=== PATIENT | female | born 1975 | race Caucasian/White ===

== ENCOUNTER 2016-11-17 15:02 | Emergency (ER) | payer BC ==
[~2016-11-17] VITALS: Ht 167.6 cm; Wt 70.0 kg
[~2016-11-17 15:02] MED LIST: AMBI12.5 PO; OMEP20TA39 PO; ULTR50TA PO
[2016-11-17 15:04] VITALS: BP 134/91; PULSE 76; RESP 16; TEMP 98.9; O2SAT 99
[2016-11-17] MEDS ORDERED: SODIUM CHLOR 0.9% 1000 ML INJ 1,000 ML IV SCH (15:43)
[2016-11-17] MEDS ORDERED: ONDANSETRON HCL 4 MG/2 ML VIAL IVP ONE (15:45)
--- NOTE | 2016-11-17 15:56 | PD ---
HPI Chief Complaint: Abdominal Pain Time Seen by Provider: 15:34 Travel History International Travel<30 days: No Contact w/Intl Traveler<30days: No Traveled to known affect area: No History of Present Illness HPI 41-year-old female complains of right flank pain. Patient states that the pain started 2 days ago. Patient states the pain is sharp and aching pain localized to right flank area. Patient denies any pain radiation. Patient states that she had nausea vomiting intermittently with the pain. Patient complains of dysuria 2 days ago but not since then. Patient states that her last menstruation period was 2 weeks ago. Patient status post tubal ligation in the past. Patient status post gastric bypass surgery in the past. Patient has history of hypertension, diabetes. On a scale of 1-10 the pain is a 6. PFSH Past Medical History Blood Disorders: No Anxiety: No Depression: No Cancer: No Cardiovascular Problems: No Diabetes: No Endocrine: No Fibromyalgia: Yes Gastrointestinal Disorders: Yes (IBS) GERD: Yes Genitourinary: No Immune Disorder: No Musculoskeletal: No Neurologic: No Psychiatric: Yes Reproductive: No Respiratory: No Immunizations Current: Yes Migraines: Yes Tetanus Vaccination: Unknown Influenza Vaccination: Yes ?: Not LMP: 3 WEEKS AGO/ TUBAL : 3 Para: 3 Tubal Ligation: Yes (2006) Past Surgical History Abdominal Surgery: Yes (LAP. EXPLORATORY) Body Medical Devices: FIBROMYALGIA Gynecologic Surgery: Yes (lap tubal with exploratory 2004) Other Surgery: Yes Social History Alcohol Use: Yes Tobacco Use: Yes (08/20 PPD) Substance Use: No Allergies-Medications (Allergen,Severity, Reaction): Coded Allergies: Darvocet-N 100 (Verified Allergy, Mild, Itching, 11/17/16) Reported Meds & Prescriptions Reported Meds & Active Scripts Active Reported Ultram (Tramadol HCl) 50 Mg Tab 50 Mg PO Q4H PRN Hm Omeprazole (Omeprazole) 20 Mg Tab 20 Mg PO DAILY Ambien Cr (Zolpidem Tartrate) 12.5 Mg Tab 25 Mg PO HS Review of Systems General / Constitutional: No: Fever Eyes: No: Visual changes HENT: No: Headaches Cardiovascular: No: Chest Pain or Discomfort Respiratory: No: Shortness of Breath Gastrointestinal: Positive: Nausea, Vomiting, No: Abdominal Pain Genitourinary: No: Dysuria Musculoskeletal: No: Pain Skin: No Rash Neurologic: No: Weakness Psychiatric: No: Depression Endocrine: No: Polydipsia Hematologic/Lymphatic: No: Easy Bruising Physical Exam Narrative GENERAL: Well-nourished, well-developed patient. SKIN: Focused skin assessment warm/dry. HEAD: Normocephalic. EYES: No scleral icterus. No injection or drainage. NECK: Supple, trachea midline. No JVD or lymphadenopathy. CARDIOVASCULAR: Regular rate and rhythm without murmurs, gallops, or rubs. RESPIRATORY: Breath sounds equal bilaterally. No accessory muscle use. GASTROINTESTINAL: Abdomen soft, non-tender, nondistended. MUSCULOSKELETAL: No cyanosis, or edema. BACK: Patient has moderate tenderness on palpation right flank area, without obvious deformity. No CVA tenderness. Neurologic exam normal. Data Data Last Documented VS Vital Signs Date Time Temp Pulse Resp B/P Pulse Ox O2 Delivery O2 Flow Rate FiO2 11/17/16 15:04 98.9 76 16 134/91 99 Orders Complete Blood Count With Diff (11/17/16 15:43) Comprehensive Metabolic Panel (11/17/16 15:43) Lipase (11/17/16 15:43) Prothrombin Time / Inr (Pt) (11/17/16 15:43) Act Partial Throm Time (Ptt) (11/17/16 15:43) Urinalysis - C+S If Indicated (11/17/16 15:43) Ct Abd/Pel W Iv Contrast(Rout) (11/17/16 15:43) Iv Access Insert/Monitor (11/17/16 15:43) Ecg Monitoring (11/17/16 15:43) Oximetry (11/17/16 15:43) Ondansetron Inj (Zofran Inj) (11/17/16 15:45) Sodium Chlor 0.9% 1000 Ml Inj (Ns 1000 M (11/17/16 15:43) Ed Urine Pregnancytest Poc (11/17/16 15:43) MDM Medical Decision Making Medical Screen Exam Complete: Yes Emergency Medical Condition: Yes Differential Diagnosis Differential diagnosis including musculoskeletal, nephrolithiasis, pyelonephritis, cholecystitis, colitis. Narrative Course 41-year-old female with right flank pain. Prakash Franklin MD Nov 17, 2016 15:55
[2016-11-17 15:57] LABS: AUTOMATED NEUTROPHIL # 3.9 TH/MM3 (1.8-7.7); BASOPHIL # 0.1 TH/MM3 (0-0.2); EOSINOPHIL # 0.2 TH/MM3 (0-0.4); EOSINOPHIL % 2.2 % (0.0-4.0); HEMATOCRIT 34.2 % (35.0-46.0); HEMO FLAGS DIFF FINAL; LYMPH % 29.3 % (9.0-44.0); LYMPHOCYTE # 2.1 TH/MM3 (1.0-4.8); MEAN CORPUSCULAR HEMOGLOBIN 28.5 PG (27.0-34.0); MEAN CORPUSCULAR HGB CONC 33.5 % (32.0-36.0); MONO % 12.4 % (0.0-8.0); NEUT % 55.1 % (16.0-70.0); PLATELET COUNT 188 TH/MM3 (150-450); RED BLOOD COUNT 4.03 MIL/MM3 (4.00-5.30); WHITE BLOOD COUNT 7.2 TH/MM3 (4.0-11.0)
[2016-11-17 16:00] VITALS: O2SAT 98
[2016-11-17] MEDS ORDERED: MORPHINE SULFATE 4 MG/ML INJ IV PUSH ONE (16:00)
[2016-11-17 16:01] VITALS: BP 129/83; PULSE 74; RESP 20; O2SAT 97
[2016-11-17 16:08] LABS: BLOOD, URINE NEG (NEG); CHLORIDE 110 MEQ/L (98-107); GLUCOSE,URINE NEG (NEG); KETONE, URINE NEG (NEG); NITRITE,URINE NEG (NEG); POTASSIUM 3.9 MEQ/L (3.5-5.1); SODIUM (NA) 143 MEQ/L (136-145)
[2016-11-17 16:10] LABS: INTERNATIONAL NORMALIZED RATIO 0.9 RATIO; PROTHROMBIN TIME - PATIENT 10.1 SEC (9.8-11.6)
[2016-11-17 16:12] LABS: ANION GAP 9 MEQ/L (5-15); BICARBONATE 23.6 MEQ/L (21.0-32.0); BLOOD UREA NITROGEN 13 MG/DL (7-18)
[2016-11-17 16:14] LABS: ALT (GPT) 41 U/L (10-53)
[2016-11-17 16:15] LABS: AST (GOT) 35 U/L (15-37); GLOMERULAR FILTRATION RATE 111 ML/MIN (>89)
[2016-11-17 16:16] LABS: TOTAL BILIRUBIN ADULT 0.1 MG/DL (0.2-1.0)
[2016-11-17 16:18] LABS: ALKALINE PHOSPHATASE 50 U/L (45-117)
[2016-11-17 16:23] LABS: URINE COLOR YELLOW (YELLW/STRAW)
[2016-11-17 16:30] LABS: COMMENT (UR) CULT NOT INDICATED; CULTURE IF INDICATED CULT NOT INDICATED; MUCUS URINE RARE /lpf (OCC); SQUAMOUS EPITHELIAL CELL URINE 0-5 /hpf (0-5); WBC, URINE 0-2 /hpf (0-5)
[2016-11-17] MEDS ORDERED: IOHEXOL 350 MG/ML 10 ML VIAL (for RAD DIAG) IV ONE (16:51)
--- NOTE | 2016-11-17 17:13 | RADHPO ---
EXAM DATE/TIME: 11/17/2016 16:24 [facility] COMPARISON: No previous studies available for comparison. INDICATIONS : Right flank pain with nausea and vomiting for two days. IV CONTRAST: 75 cc Omnipaque 350 (iohexol) IV ORAL CONTRAST: No oral contrast ingested. RADIATION DOSE: 7.67 CTDIvol (mGy) MEDICAL HISTORY : Gastroesophageal reflux disease. Irritable bowel syndrome. SURGICAL HISTORY : Tubal ligation. Gastric bypass. ENCOUNTER: Initial ACUITY: 2 days PAIN SCALE: 6/10 LOCATION: Right flank TECHNIQUE: Volumetric scanning of the abdomen and pelvis was performed. Using automated exposure control and ad justment of the mA and/or kV according to patient size, radiation dose was kept as low as reasonably achievable to obtain optimal diagnostic quality images. FINDINGS: There is subsegmental atelectasis in the both bases. The liver and spleen are normal in size and no focal defects are identified with the exception of a tiny hypodensity in segment 6 measuring 8 mm too small to further characterize. The gallbladder and pancreas are unremarkable. No intrahepatic or ext rahepatic ductal dilatation is seen. The adrenal glands and kidneys appear normal bilaterally. No hyd ronephrosis or mass lesions are identified. Examination of the pelvis demonstrates no evidence of free fluid or pelvic mass. No abnormally enlarg ed inguinal or retroperitoneal lymph nodes are present. The bladder is unremarkable. There is a 1 cm area of hyperdensity in the left adnexa which may reflect a hemorrhagic cyst. CONCLUSION: 1. Possible 1 cm hemorrhagic cyst left adnexa 2. Postsurgical changes in the stomach possibly gastric bypass. Jas Amaral MD on November 17, 2016 at 16:53 Board Certified Radiologist. This report was verified electronically.
[2016-11-17] MEDS ORDERED: HYDR-3533 PO (17:35)
--- NOTE | 2016-11-17 17:36 | PD ---
Physical Exam Date Seen by Provider: Nov 17, 2016 Time Seen by Provider: 17:33 Narrative This 41-year-old female says that she's been having some right flank pain off and on for several days. Couple of days ago she passed a small lack fell in her urine that was bloody. She has not had kidney stones before. She was having increasing pain earlier today the pain is not bad right now. She has a history of gastric bypass. She was seen by Dr. Franklin who ordered a complete workup. Her urine is negative for infection and blood. Her white count is normal. CT scan of the abdomen and pelvis shows a small 1 cm hemorrhagic cyst on the left ovary. I doubt this is the source of her pain. There is no evidence of hydronephrosis and a kidney stone is not seen. It does sound as though she passed a stone a couple of days ago. She is stable for discharge at this time. She is having some residual pain and I will prescribe some Lortab isn't helping to take anti-inflammatory medication with her gastric bypass Data Data Last Documented VS Vital Signs Date Time Temp Pulse Resp B/P Pulse Ox O2 Delivery O2 Flow Rate FiO2 11/17/16 16:01 74 20 129/83 97 11/17/16 15:04 98.9 Orders Complete Blood Count With Diff (11/17/16 15:43) Comprehensive Metabolic Panel (11/17/16 15:43) Lipase (11/17/16 15:43) Prothrombin Time / Inr (Pt) (11/17/16 15:43) Act Partial Throm Time (Ptt) (11/17/16 15:43) Urinalysis - C+S If Indicated (11/17/16 15:43) Ct Abd/Pel W Iv Contrast(Rout) (11/17/16 15:43) Iv Access Insert/Monitor (11/17/16 15:43) Ecg Monitoring (11/17/16 15:43) Oximetry (11/17/16 15:43) Ondansetron Inj (Zofran Inj) (11/17/16 15:45) Sodium Chlor 0.9% 1000 Ml Inj (Ns 1000 M (11/17/16 15:43) Ed Urine Pregnancytest Poc (11/17/16 15:43) Morphine Inj (Morphine Inj) (11/17/16 16:00) Iohexol 350 Inj (Omnipaque 350 Inj) (11/17/16 16:51) Labs Laboratory Tests Test 11/17/16 15:45 White Blood Count 7.2 TH/MM3 Red Blood Count 4.03 MIL/MM3 Hemoglobin 11.5 GM/DL Hematocrit 34.2 % Mean Corpuscular Volume 85.0 FL Mean Corpuscular Hemoglobin 28.5 PG Mean Corpuscular Hemoglobin 33.5 % Concent Red Cell Distribution Width 18.0 % Platelet Count 188 TH/MM3 Mean Platelet Volume 8.3 FL Neutrophils (%) (Auto) 55.1 % Lymphocytes (%) (Auto) 29.3 % Monocytes (%) (Auto) 12.4 % Eosinophils (%) (Auto) 2.2 % Basophils (%) (Auto) 1.0 % Neutrophils # (Auto) 3.9 TH/MM3 Lymphocytes # (Auto) 2.1 TH/MM3 Monocytes # (Auto) 0.9 TH/MM3 Eosinophils # (Auto) 0.2 TH/MM3 Basophils # (Auto) 0.1 TH/MM3 CBC Comment DIFF FINAL Differential Comment Prothrombin Time 10.1 SEC Prothromb Time International 0.9 RATIO Ratio Activated Partial 25.0 SEC Thromboplast Time Urine Color YELLOW Urine Turbidity CLEAR Urine pH 7.0 Urine Specific [place] 1.024 Urine Protein NEG mg/dL Urine Glucose (UA) NEG mg/dL Urine Ketones NEG mg/dL Urine Occult Blood NEG Urine Nitrite NEG Urine Bilirubin NEG Urine Leukocyte Esterase NEG Urine WBC 0-2 /hpf Urine Squamous Epithelial 0-5 /hpf Cells Urine Mucus RARE /lpf Microscopic Urinalysis Comment CULT NOT INDICATED Sodium Level 143 MEQ/L Potassium Level 3.9 MEQ/L Chloride Level 110 MEQ/L Carbon Dioxide Level 23.6 MEQ/L Anion Gap 9 MEQ/L Blood Urea Nitrogen 13 MG/DL Creatinine 0.60 MG/DL Estimat Glomerular Filtration 111 ML/MIN Rate Random Glucose 83 MG/DL Calcium Level 8.4 MG/DL Total Bilirubin 0.1 MG/DL Aspartate Amino Transf 35 U/L (AST/SGOT) Alanine Aminotransferase 41 U/L (ALT/SGPT) Alkaline Phosphatase 50 U/L Total Protein 6.6 GM/DL Albumin 3.7 GM/DL Lipase 487 U/L [facility] Medical Record Reviewed: Yes Supervised Visit with DAMI: Yes Differential Diagnosis Frontal includes musculoskeletal pain, renal colic, passed kidney stone Narrative Course Workup is negative. I believe she passed a kidney stone couple of days ago Diagnosis Primary Impression: Renal colic on right side Scripts Hydrocodone-Acetaminophen (Lortab)5-325 Mg Tab1 Tab PO Q4H PRN (PAIN) #15 TAB Ref 0 Prov:Chris Morel MD 11/17/16 Disposition: 01 DISCHARGE HOME Condition: Stable Chris Morel MD Nov 17, 2016 17:36
== END 2016-11-17 17:56 | disposition home or self-care (01) ==
LOC: PHED 15:02
DX: N23 Unspecified renal colic (principal); R11.2 Nausea with vomiting, unspecified; K21.9 Gastro-esophageal reflux disease without esophagitis; M79.7 Fibromyalgia; F17.200 Nicotine dependence, unspecified, uncomplicated
CPT/HCPCS: 74177; 80053; 81001; 83690; 84703; 85025; 85610; 85730; 96374; 99284; J2270; J2405; J7030; Q9967